=== PATIENT | female | born 1990 | race Caucasian/White ===

== ENCOUNTER 2017-04-24 10:13 | Inpatient (IN) | payer OTHER ==
[~2017-04-24] VITALS: Ht 154.9 cm; Wt 63.7 kg
[~2017-04-24 10:13] MED LIST: PREN1TAB74 PO
[2017-04-24 10:26] VITALS: Ht 154.9 cm; Wt 63.7 kg
[2017-04-24 10:27] VITALS: BP 96/52; PULSE 93; RESP 20
[2017-04-24] MEDS: LACTATED RINGER'S 1,000 ML IV SCH ×3 (11:08→23:36)
[2017-04-24] MEDS ORDERED: LACTATED RINGER'S 1,000 ML IV SCH (11:12)
--- NOTE | 2017-04-24 11:20 | TRIAGE ---
OB Triage Datetime Report Generated by CPN: 04/24/2017 11:20 Datetime: 04/24/2017 10:30 Assessment Type: Triage Maternal Assessment Level of Consciousness: Fully Conscious DTR's/Clonus: DTRs 2+; No Clonus Headache: Denies Blurred Vision: No Respiratory Effort: Unlabored; Regular Rhythm; Equal Expansion Breath Sounds, Left: Clear and Equal Breath Sounds, Right: Clear and Equal Nausea/Vomiting: Denies RUQ Epigastric Pain: Denies Facial Edema: None Fall Risk Assessment History of Falling: (0) No Secondary Diagnosis: (0) No Ambulatory Aid: (0) Bedrest/Nurse Assist IV Therapy: (0) No Gait: (0) Normal/Bedrest/Immobile Mental Status: (0) Oriented to Own Ability Fall Score: 0 Fall Risk Score Definition: No Risk: No action required Datetime: 04/24/2017 10:27 Labor Evaluation Frequency: q6 Monitor Mode: External Duration (sec)2399: 70 Quality: Moderate Resting Tone [place]: Relaxed Heart Rate FHR Baseline Rate: 140 Monitor Mode: External US FHR Baseline Changes: No Baseline Change Variability: Moderate 6-25 bpm Accelerations: 15X15 Decelerations: None Category: Category I Pain Assessment Pain Scale: 10 Pain Type: Contraction Pain Goal: 0 Datetime: 04/24/2017 10:20 Time of Arrival: 04/24/2017 10:20 EGA: 39.4 Arrived By: Ambulatory Chief Complaint: contractions, prev c/s x3 Movement: Present Contractions: Irregular Rupture of Membranes: Denies Vaginal Bleeding: None Vaginal Discharge: Denies Recent Sexual Intercouse: Denies Abdominal Trauma: Not Applicable Patient Complaints: Contractions Time Provider Notified: 04/24/2017 10:30
[2017-04-24] MEDS ORDERED: OXYTOCIN 30 UNITS/LR 500 ML IV PRN ×2 (11:30→17:30)
[2017-04-24] MEDS ORDERED: CEFAZOLIN 3 GM in DEXTROSE 5% 100 ML IV SCH (11:30)
[2017-04-24] MEDS ORDERED: METHYLERGONOVINE 0.2 MG INJ IM PRN ×2 (11:30→17:30)
[2017-04-24] MEDS ORDERED: CARBOPROST 250 MCG INJ IM PRN ×2 (11:30→17:30)
[2017-04-24] MEDS ORDERED: OXYTOCIN 30 UNITS/LR 500 ML IV SCH (11:30)
[2017-04-24] MEDS ORDERED: MISOPROSTOL 200 MCG TAB PR PRN ×2 (11:30→17:30)
[2017-04-24 11:39] LABS: BASOPHILS % 0.6 % (0.0-2.0); EOSINOPHILS # 0.1 10^3/ul (0.0-0.5); EOSINOPHILS % 1.3 % (0.0-7.0); HEMATOCRIT 32.5 % (37.0-47.0); HEMOGLOBIN 10.3 g/dl (12.0-16.0); LYMPHOCYTES # 1.5 10^3/ul (0.8-2.9); LYMPHOCYTES % 20.5 % (15.0-51.0); MEAN CORPUSCULAR HEMOGLOBIN 25.1 pg (29.0-33.0); MEAN CORPUSCULAR HGB CONC 31.7 g/dl (32.0-37.0); MEAN CORPUSCULAR VOLUME 79.3 fl (82.0-101.0); MEAN PLATELET VOLUME 10.3 fl (7.4-10.4); MONOCYTE # 0.4 10^3/ul (0.3-0.9); MONOCYTES % 6.1 % (0.0-11.0); NEUTROPHILS % 70.9 % (39.0-77.0); PLATELET COUNT 299 10^3/UL (140-415); RED CELL DISTRIBUTION WIDTH 16.4 % (11.5-14.5); WHITE BLOOD COUNT 7.1 10^3/ul (4.8-10.8)
[2017-04-24] MEDS ORDERED: morphine SULFATE/PF (10 MG/10 ML) INJ ONE (11:46)
[2017-04-24] MEDS ORDERED: KETOROLAC 30 MG INJ ONE (11:46)
[2017-04-24] MEDS ORDERED: METOCLOPRAMIDE 10 MG INJ ONE (11:46)
[2017-04-24] MEDS ORDERED: ONDANSETRON 4 MG INJ ONE (11:46)
[2017-04-24] MEDS ORDERED: OXYTOCIN 30 UNITS/LR 500 ML IV ONE (11:46)
[2017-04-24] MEDS ORDERED: CITRIC ACID/NA CITRATE 30 ML CUP PO ONE (12:00)
[2017-04-24] MEDS ORDERED: CEFAZOLIN 2 GM/50 ML (PMX) 50 ML IVPB SCH (12:00)
[2017-04-24 12:21] LABS: INR 0.94; PROTIME 12.6 Sec (12.2-14.2)
[2017-04-24 12:22] LABS: PARTIAL THROMBOPLASTIN TIME 29.7 Sec (25.0-35.0)
[2017-04-24] MEDS ORDERED: EPHEDrine SULFATE 50 MG/5 ML SYG ONE (12:41)
[2017-04-24] MEDS ORDERED: HYDROmorphONE 1 MG/ML SYG IV PRN ×3 (14:00)
[2017-04-24] MEDS ORDERED: DIPHENHYDRAMINE 50 MG INJ IV PRN ×2 (14:00)
[2017-04-24] MEDS ORDERED: NALOXONE (0.4 MG/ML) INJ IV PRN (14:00)
[2017-04-24] MEDS ORDERED: HYDROmorphONE (0.2 MG/ML) 10ML SYG IV PRN ×3 (14:00)
[2017-04-24] MEDS ORDERED: ONDANSETRON 4 MG INJ IV PRN ×2 (14:00)
[2017-04-24] MEDS ORDERED: METOCLOPRAMIDE 10 MG INJ IV PRN (14:00)
[2017-04-24] MEDS ORDERED: MEPERIDINE 25 MG INJ IV PRN (14:00)
--- NOTE | 2017-04-24 14:01 | OPR ---
Operative Report Planned Procedure Free Text/Dictation 39 weeks 4 days history of 3 previous section, request for bilateral tubal ligation at the time of operation with a EDC of April 27, 2017 admitted in active labor contraction every 2-3 minute heart rate category 1 transferred to the delivery room to be prepared for repeat bilateral tubal ligation Procedure date Apr 24, 2017 Procedure(s) Repeat bilateral tubal ligation Performed by: CATHY STANLEY MD Assisting provider: CARLOS TORREZ MD Anesthesiologist: STACEY VALDEZ MD Pre-procedure diagnosis 39 weeks 4 days history of 3 previous section request for tubal ligation in active labor Anesthesia Type: spinal Procedure Description Under satisfactory [] anesthesia, the patient was prepped and draped and placed in supine position, tilted to the left. Pfannenstiel incision was made, carried through the subcutaneous tissue. Bleeders brought under control with electrocautery. Fascia incised to the length of the incision. Rectus muscles from the fascia, divided midline. Peritoneum exposed, entered through a transverse incision. Exploration of abdomen revealed gravid uterus normal- appearing tubes and ovaries extremely thinned out lower segment of the uterus, bladder flap was developed. Transverse incision was made in the lower segment of the uterus. Amniotic sac ruptured. Clear] amniotic fluid noted. Light baby boy was delivered from occiput posterior face up Nasal oropharyngeal suction was performed. baby handed to the team for immediate attention and received 20 units of Pitocin. placenta was delivered manually intact. Uterine cavity cleaned with wet sponge and drainage established. Uterus closed in 2 layers using [Monocryl #1] in continuous fashion. Lateral tubal ligation performed by identifying the fimbria right fallopian tube grasped by a Darline that segment of the tube was completely resected suture material used #0 plain catgut was reinforced with the same suture material specimen submitted to the pathology same procedure performed for the opposite side, peritoneal cavity irrigated with warm saline. Sponge, needle and instrument count reported to be correct. Abdominal peritoneum closed with [0 chromic catgut] continuously. Rectus muscle approximated with [several interrupted 2-0 chromic catgut]. Fascia closed with #1 PDS, cutaneous tissue submitted with several interrupted 2 -0 chromic catgut, skin closed with sore and incision covered with Dermabond. Estimated blood loss 6-700]mL. Urine bag contained 200 mL of clear, urine tolerated procedure well transferred to recovery room in good condition. Post-Procedure Findings: Live Baby boy 9 and 9 Specimen removed: No Complications: None Pt Condition post procedure: stable Physician Certification I, the undersigned physician, hereby certify that I have discussed the procedure described in this consent form with this patient (or the patient's legal ambulatory service representative), including: * The risk and benefits of the procedure; * Any adverse reactions that may reasonably be expected to occur; * Any alternative efficacious methods of treatment which may be medically viable ; * The potential problems that may occur during recuperation; * Potential for blood transfusion and associated risks/benefits; and * Any research or economic interest I may have regarding this treatment. I further certify that the patient/legally responsible person was encouraged to ask question and that all questions were answered. CATHY STANLEY MD Apr 24, 2017 14:00
[2017-04-24 16:40] VITALS: BP 122/68; PULSE 87; RESP 20
[2017-04-24] MEDS ORDERED: CEFAZOLIN 1 GM/50 ML (PMX) 50 ML IVPB SCH ×2 (17:30→21:00)
[2017-04-24] MEDS ORDERED: OXYCODONE/ACETAMINOPHEN (5/325) TAB PO PRN (17:30)
[2017-04-24] MEDS ORDERED: HYDROCODONE/APAP (5/325) TAB PO PRN ×2 (17:30)
[2017-04-24] MEDS: OXYTOCIN 30 UNITS/LR 500 ML IV SCH ×2 (17:35→21:05)
[2017-04-24] MEDS: LANOLIN 7 GM TUBE TOP PRN (17:38)
[2017-04-24 17:57] VITALS: BP 120/60; PULSE 80; RESP 19
[2017-04-24 19:50] VITALS: BP 98/57; PULSE 77; RESP 18
[2017-04-25] VITALS: BP 105/59; PULSE 59; RESP 18
[2017-04-25] MEDS: KETOROLAC 30 MG INJ IV PRN ×2 (00:07→11:37)
[2017-04-25] MEDS: OXYTOCIN 30 UNITS/LR 500 ML IV SCH ×5 (01:05→17:05)
--- NOTE | 2017-04-25 01:23 | PN ---
Date/Time of Note Date/Time of Note DATE: 04/25/17 TIME: 01:22 Assessment/Plan VTE Prophylaxis VTE Prophylaxis Intervention: ambulation, anti-embolic stocking Lines/Catheters IV Catheter Type (from Nrsg): Peripheral IV Subjective 24 Hr Interval Summary Free Text/Dictation Anesthesia notw: A 26 year female s/pduramorph spinal is doing ok. no pain, headache N/V, itching , back psin. no irritation at back. care per surgery Exam/Review of Systems Vital Signs Vitals Vital Signs Date Time Temp Pulse Resp B/P Pulse Ox O2 Delivery O2 Flow Rate FiO2 04/24/17 17:57 98.4 80 19 120/60 Room Air 04/24/17 16:40 99 Intake and Output 04/24/17 04/24/17 04/25/17 15:00 23:00 07:00 Intake Total 3200 ml 475 ml Output Total 600 ml 750 ml Balance 2600 ml -275 ml Results Result Diagram: 04/24/17 1010 Results 24 hrs Laboratory Tests Test 04/24/17 10:10 White Blood Count 7.1 Red Blood Count 4.10 L Hemoglobin 10.3 L Hematocrit 32.5 L Mean Corpuscular Volume 79.3 L Mean Corpuscular Hemoglobin 25.1 L Mean Corpuscular Hemoglobin Concent 31.7 L Red Cell Distribution Width 16.4 #H Platelet Count 299 Mean Platelet Volume 10.3 # Neutrophils % 70.9 Lymphocytes % 20.5 Monocytes % 6.1 Eosinophils % 1.3 Basophils % 0.6 Nucleated Red Blood Cells % 0.0 Neutrophils # (Manual) 5.0 Lymphocytes # 1.5 Monocytes # 0.4 Eosinophils # 0.1 Basophils # 0.0 Nucleated Red Blood Cells # 0.0 Prothrombin Time 12.6 Prothrombin Time Ratio 1.0 INR International Normalized Ratio 0.94 Activated Partial Thromboplast Time 29.7 Rapid Plasma Reagin NONREACTIVE Hepatitis B Surface Antigen NEGATIVE Medications Medications Current Medications Lactated Ringer's 1,000 ml @ 125 mls/hr Q8H IV Last administered on 04/24/17 23:36; Admin Dose 125 MLS/HR; Start 04/24/17 at 11:00 Oxytocin/Lactated Ringer's 500 ml @ 125 mls/hr ONCE IV Last administered on 15:03; Admin Dose 125 MLS/HR; Start 04/24/17 at 11:30 Naloxone HCl (Narcan) 0.1 mg Q2M PRN IV FOR RESP RATE 8 OR LESS; Start 04/24/17 at 14:00; Stop 04/25/17 at 13:59 Ketorolac Tromethamine (Toradol) 30 mg Q6H PRN IV PAIN Last administered on 04/25t 00:07; Admin Dose 30 MG; Start 04/24/17 at 14:00; Stop 04/25/17 at 13:59 Hydromorphone HCl (Dilaudid) 1 mg Q3H PRN IV BREAKTHROUGH PAIN; Start 04/24/17 at 14:00; Stop 04/25/17 at 13:59 Hydromorphone HCl (Dilaudid) 0.2 mg Q3H PRN IV PAIN LEVEL 1-5; Start 04/24/17 at 14:00; Stop 04/25/17 at 13:59 Hydromorphone HCl (Dilaudid) 0.4 mg Q3H PRN IV PAIN LEVEL 6-10; Start 04/24/17 at 14:00; Stop 04/25/17 at 13:59 Diphenhydramine HCl (Benadryl) 25 mg Q6H PRN IV ITCHING; Start 04/24/17 at 14:00 ; Stop 04/25/17 at 13:59 Ondansetron HCl (Zofran Inj) 4 mg Q6H PRN IV NAUSEA AND/OR VOMITING; Start 04/24 at 14:00; Stop 04/25/17 at 13:59 Acetaminophen/ Hydrocodone Bitart ([place] (5/325)) 1 tab Q4H PRN PO PAIN LEVEL 4 -6; Start 04/24/17 at 17:30 Acetaminophen/ Hydrocodone Bitart ([place] (5/325)) 2 tab Q4H PRN PO PAIN LEVEL 7 -10; Start 04/24/17 at 17:30 Oxycodone/ Acetaminophen (Percocet (5/ 325)) 1 tab Q4H PRN PO PAIN LEVEL 4-6; Start 04/24/17 at 17:30 Oxycodone/ Acetaminophen (Percocet (5/ 325)) 2 tab Q4H PRN PO PAIN LEVEL 7-10; Start 04/24/17 at 17:30 Ibuprofen (Motrin) 600 mg Q6 PO ; Start 04/25/17 at 18:00 Simethicone (Mylicon) 160 mg Q8H PRN PO DISTENSION/GAS/BLOATING; Start 04/24/17 at 17:30 Senna/Docusate Sodium (Senokot-S) 1 tab BID PO ; Start 04/25/17 at 09:00 Diphtheria/ Tetanus/Acell Pertussis 0.5 ml 0.5 ml ONCE ONCE IM* ; Start 04/27/17 at 09:00; Stop 04/27/17 at 09:01 Oxytocin/Lactated Ringer's 500 ml @ 0 mls/hr ONCE PRN IV For Hemorrhage Management; Start 04/24/17 at 17:30 Methylergonovine Maleate (Methergine) 0.2 mg ONCE PRN IM VAGINAL BLEEDING; Start 04/24/17 at 17:30 Carboprost Tromethamine (Hemabate) 250 mcg ONCE PRN IM VAGINAL BLEEDING; Start 04/24/17 at 17:30 Misoprostol 1000 mcg 1,000 mcg ONCE PRN [place] VAGINAL BLEEDING; Start 04/24/17 at 17 :30 Oxytocin/Lactated Ringer's 500 ml @ 125 mls/hr Q4H IV Last administered on 04/24t 17:35; Admin Dose 125 MLS/HR; Start 04/24/17 at 17:05 STACEY VALDEZ MD Apr 25, 2017 01:23
[2017-04-25 04:00] VITALS: BP 91/47; PULSE 79; RESP 18
[2017-04-25 07:52] LABS: BASOPHILS % 0.4 % (0.0-2.0); EOSINOPHILS # 0.1 10^3/ul (0.0-0.5); EOSINOPHILS % 0.7 % (0.0-7.0); HEMATOCRIT 29.3 % (37.0-47.0); HEMOGLOBIN 8.8 g/dl (12.0-16.0); LYMPHOCYTES # 1.5 10^3/ul (0.8-2.9); LYMPHOCYTES % 20.2 % (15.0-51.0); MEAN CORPUSCULAR HEMOGLOBIN 24.5 pg (29.0-33.0); MEAN CORPUSCULAR VOLUME 81.6 fl (82.0-101.0); MEAN PLATELET VOLUME 10.3 fl (7.4-10.4); MONOCYTE # 0.5 10^3/ul (0.3-0.9); MONOCYTES % 6.7 % (0.0-11.0); NEUTROPHILS % 71.6 % (39.0-77.0); PLATELET COUNT 251 10^3/UL (140-415); RED BLOOD COUNT 3.59 10^6/ul (4.20-5.40); RED CELL DISTRIBUTION WIDTH 16.5 % (11.5-14.5); WHITE BLOOD COUNT 7.5 10^3/ul (4.8-10.8)
[2017-04-25 08:00] VITALS: BP 100/55; PULSE 84; RESP 18
[2017-04-25] MEDS: SENNA/DOCUSATE NA (8.6MG/50MG) TAB PO SCH ×2 (09:59→21:14)
[2017-04-25] MEDS: LACTATED RINGER'S 1,000 ML IV SCH (11:00)
[2017-04-25 12:30] VITALS: BP 98/52; PULSE 82; RESP 18
--- NOTE | 2017-04-25 12:47 | PN ---
Date/Time of Note Date/Time of Note DATE: 04/25/17 TIME: 12:45 OB Subjective Subjective Subjective Post day but Afebrile Vital signs are stable Abdomen soft Bowel sounds present Lochia moderate Ambulation encouraged Extremities normal Laboratory Tests Test 04/25/17 06:59 White Blood Count 7.510^3/ul Red Blood Count 3.5910^6/ul Hemoglobin 8.8g/dl Hematocrit 29.3% Mean Corpuscular Volume 81.6fl Mean Corpuscular Hemoglobin 24.5pg Mean Corpuscular Hemoglobin Concent 30.0g/dl Red Cell Distribution Width 16.5% Platelet Count 10881^3/UL Mean Platelet Volume 10.3fl Neutrophils % 71.6% Lymphocytes % 20.2% Monocytes % 6.7% Eosinophils % 0.7% Basophils % 0.4% Nucleated Red Blood Cells % 0.0/100WBC Neutrophils # (Manual) 5.410^3/ul Lymphocytes # 1.510^3/ul Monocytes # 0.510^3/ul Eosinophils # 0.110^3/ul Basophils # 0.010^3/ul Nucleated Red Blood Cells # 0.010^3/ul Current Medications Medications (Trade) Dose Ordered Sig/[place] Route PRN Reason Start Time Stop Time Status Last Admin Dose Admin Lactated Ringer's 1,000 ml @ 125 mls/hr Q8H IV 04/24/17 11:00 04/24/17 23:36 Lactated Ringer's 1,000 ml @ 125 mls/hr Q8H IV 04/24/17 11:12 04/24/17 17:09 DC Cefazolin Sodium 3 gm/Dextrose 100 ml @ 100 mls/hr ONCE IV 04/24/17 11:30 04/24/17 11:57 DC Oxytocin/Lactated Ringer's 500 ml @ 125 mls/hr ONCE IV 04/24/17 11:30 04/24/17 15:03 Oxytocin/Lactated Ringer's 500 ml @ 0 mls/hr ONCE PRN IV For Hemorrhage Management 04/24/17 11:30 04/24/17 17:09 DC Methylergonovine Maleate (Methergine) 0.2 mg ONCE PRN IM VAGINAL BLEEDING 04/24/17 11:30 04/24/17 17:09 DC Carboprost Tromethamine (Hemabate) 250 mcg ONCE PRN IM VAGINAL BLEEDING 04/24/17 11:30 04/24/17 17:09 DC Misoprostol 1000 mcg 1,000 mcg ONCE PRN [place] VAGINAL BLEEDING 04/24/17 11:30 04/24/17 17:09 DC Oxytocin/Lactated Ringer's 500 ml @ ud STK-MED ONCE IV 04/24/17 11:46 04/24/17 11:47 DC Morphine Sulfate (Duramorph) 10 mg STK-MED ONCE .ROUTE 04/24/17 11:46 04/24/17 11:47 DC Ondansetron HCl (Zofran Inj) 4 mg STK-MED ONCE .ROUTE 04/24/17 11:46 04/24/17 11:47 DC Metoclopramide HCl (Reglan) 10 mg STK-MED ONCE .ROUTE 04/24/17 11:46 04/24/17 11:47 DC Ketorolac Tromethamine (Toradol) 30 mg STK-MED ONCE .ROUTE 04/24/17 11:46 04/24/17 11:47 DC Citric Acid/ Sodium Citrate 30 ml 30 ml PRE-OP ONCE PO 04/24/17 12:00 04/24/17 12:01 DC 04/24/17 11:59 Cefazolin Sodium/ Dextrose (Ancef 2 Gm/50 ml (Pmx)) 50 ml @ 100 mls/hr ONCE IVPB 04/24/17 12:00 04/24/17 17:09 DC Ephedrine Sulfate 50 mg STK-MED ONCE .ROUTE 04/24/17 12:41 04/24/17 12:42 DC Naloxone HCl (Narcan) 0.1 mg Q2M PRN IV FOR RESP RATE 8 OR LESS 04/24/17 14:00 04/25/17 13:59 Ketorolac Tromethamine (Toradol) 30 mg Q6H PRN IV PAIN 04/24/17 14:00 04/25/17 13:59 04/25/17 11:37 Hydromorphone HCl (Dilaudid) 1 mg Q3H PRN IV BREAKTHROUGH PAIN 04/24/17 14:00 04/25/17 13:59 Hydromorphone HCl (Dilaudid) 0.2 mg Q3H PRN IV PAIN LEVEL 1-5 04/24/17 14:00 04/25/17 13:59 Hydromorphone HCl (Dilaudid) 0.4 mg Q3H PRN IV PAIN LEVEL 6-10 04/24/17 14:00 04/25/17 13:59 Diphenhydramine HCl (Benadryl) 25 mg Q6H PRN IV ITCHING 04/24/17 14:00 04/25/17 13:59 Ondansetron HCl (Zofran Inj) 4 mg Q6H PRN IV NAUSEA AND/OR VOMITING 04/24/17 14:00 04/25/17 13:59 Hydromorphone HCl (Dilaudid (Rec)) 0.2 mg PACU ORDER PRN IV MILD PAIN LEVEL 1-3 04/24/17 14:00 04/24/17 17:09 DC Hydromorphone HCl (Dilaudid (Rec)) 0.4 mg PACU ORDER PRN IV MODERATE PAIN LEVEL 4-6 04/24/17 14:00 04/24/17 17:09 DC Hydromorphone HCl (Dilaudid (Rec)) 0.6 mg PACU ORDER PRN IV SEVERE PAIN LEVEL 7-10 04/24/17 14:00 04/24/17 17:09 DC Ondansetron HCl (Zofran Inj) 4 mg PACU ORDER PRN IV NAUSEA AND/OR VOMITING 04/24/17 14:00 04/24/17 17:09 DC Metoclopramide HCl (Reglan) 10 mg PACU ORDER PRN IV NAUSEA AND/OR VOMITING 04/24/17 14:00 04/24/17 17:09 DC Meperidine HCl (Demerol) 25 mg PACU ORDER PRN IV POST-OP RIGORS 04/24/17 14:00 04/24/17 17:09 DC Diphenhydramine HCl (Benadryl) 25 mg PACU ORDER PRN IV PRURITUS 04/24/17 14:00 04/24/17 17:09 DC Acetaminophen/ Hydrocodone Bitart ([place] (5/325)) 1 tab Q4H PRN PO PAIN LEVEL 4-6 04/24/17 17:30 Acetaminophen/ Hydrocodone Bitart ([place] (5/325)) 2 tab Q4H PRN PO PAIN LEVEL 7-10 04/24/17 17:30 Oxycodone/ Acetaminophen (Percocet (5/ 325)) 1 tab Q4H PRN PO PAIN LEVEL 4-6 04/24/17 17:30 Oxycodone/ Acetaminophen (Percocet (5/ 325)) 2 tab Q4H PRN PO PAIN LEVEL 7-10 04/24/17 17:30 Ibuprofen (Motrin) 600 mg Q6 PO 04/25/17 18:00 Simethicone (Mylicon) 160 mg Q8H PRN PO DISTENSION/GAS/BLOATING 04/24/17 17:30 04/25/17 11:38 Senna/Docusate Sodium (Senokot-S) 1 tab BID PO 04/25/17 09:00 04/25/17 09:59 Lanolin ([id number]) 1 applic BEDSIDE MEDICATION PRN TOP BEDSIDE FOR JOHNNIE TO NIPPLES 04/24/17 17:30 04/24/17 17:38 Diphtheria/ Tetanus/Acell Pertussis 0.5 ml 0.5 ml ONCE ONCE IM* 04/27/17 09:00 04/27/17 09:01 Oxytocin/Lactated Ringer's 500 ml @ 0 mls/hr ONCE PRN IV For Hemorrhage Management 04/24/17 17:30 Methylergonovine Maleate (Methergine) 0.2 mg ONCE PRN IM VAGINAL BLEEDING 04/24/17 17:30 Carboprost Tromethamine (Hemabate) 250 mcg ONCE PRN IM VAGINAL BLEEDING 04/24/17 17:30 Misoprostol 1000 mcg 1,000 mcg ONCE PRN [place] VAGINAL BLEEDING 04/24/17 17:30 Cefazolin Sodium 50 ml @ 100 mls/hr ONCE IVPB 04/24/17 17:30 04/24/17 17:30 DC Oxytocin/Lactated Ringer's 500 ml @ 125 mls/hr Q4H IV 04/24/17 17:05 04/24/17 17:35 Cefazolin Sodium (Ancef 1 Gm/50 ml (Pmx)) 50 ml @ 100 mls/hr ONCE IVPB 04/24/17 21:00 04/24/17 21:29 DC 04/24/17 21:42 CATHY STANLEY MD Apr 25, 2017 12:47
[2017-04-25 16:30] VITALS: BP_SYST 53; PULSE 94; RESP 18
[2017-04-25] MEDS: OXYCODONE/ACETAMINOPHEN (5/325) TAB PO PRN (16:54)
[2017-04-25] MEDS: IBUPROFEN 600 MG TAB PO SCH ×2 (18:04→23:33)
[2017-04-25 19:45] VITALS: BP 82/54; PULSE 81; RESP 18
[2017-04-26] MEDS: OXYCODONE/ACETAMINOPHEN (5/325) TAB PO PRN (00:53)
[2017-04-26 04:15] VITALS: BP 88/50; PULSE 73; RESP 18
[2017-04-26] MEDS: IBUPROFEN 600 MG TAB PO SCH ×4 (05:31→23:18)
[2017-04-26 08:30] VITALS: BP 85/65; PULSE 76; RESP 16
[2017-04-26] MEDS: SENNA/DOCUSATE NA (8.6MG/50MG) TAB PO SCH ×2 (09:00→21:13)
--- NOTE | 2017-04-26 09:31 | PN ---
Date/Time of Note Date/Time of Note DATE: 04/26/17 TIME: 09:30 OB Subjective Subjective Subjective Post day 2 Afebrile Vital signs are stable Abdomen soft Incision healing well Bowel sounds present Had bowel movement Extremities normal Plan of a.m. discharge discussed CATHY STANLEY MD Apr 26, 2017 09:31
[2017-04-26] MEDS ORDERED: DIPHTH/TET/ACEL PERTUSS (ADULT) 0.5 ML VIAL IM* ONE (13:00)
[2017-04-26 16:15] VITALS: BP 96/50; PULSE 80; RESP 17
[2017-04-26 20:00] VITALS: BP 86/58; PULSE 76; RESP 18
[2017-04-27 04:00] VITALS: BP 83/54; PULSE 69; RESP 17
[2017-04-27] MEDS: IBUPROFEN 600 MG TAB PO SCH ×2 (05:35→11:37)
[2017-04-27 07:45] VITALS: BP 101/53; PULSE 70; RESP 16
[2017-04-27] MEDS ORDERED: DIPHTH/TET/ACEL PERTUSS (ADULT) 0.5 ML VIAL IM* ONE (09:00)
[2017-04-27] MEDS ORDERED: MEASLES,MUMPS,RUBELLA VACCINE INJ SC* ONE (09:00)
[2017-04-27] MEDS: SENNA/DOCUSATE NA (8.6MG/50MG) TAB PO SCH (09:38)
--- NOTE | 2017-04-27 10:09 | PD.PPDC ---
[employer] Discharge Instruction Condition Patient Condition: Good Diet Diet: Resume Regular Diet Activity/Restrictions Activity: Normal Activity May Shower Restrictions: No Exercising No Lifting No Driving No Sexual Activity Nothing in the Vagina No Hardesty No Tampons, douche Wound/Drain Care Instructions Wound/Drain Care Instructions: Remove Steri Strips in 1 week Follow-up Follow-up with Physician: 1, Week/Weeks Provider Information: Post instructions given recommended to make appointment in 1 week to be seen at the clinic Return to clinic for [facility] Instructions: Fever greater than 101 Chills Worsening abdominal pain Excessive Vaginal Bleeding More than 2 pads per hour Unable to tolerate diet OB Instructions: Breast Tenderness Depression Blurried Vision Headache Surgical Instructions: Incisional Drainage Incisional Redness CATHY STANLEY MD Apr 27, 2017 10:09
--- NOTE | 2017-04-27 10:15 | DS ---
Date/Time of Note Date/Time of Note DATE: 04/27/17 TIME: 10:11 Discharge Summary Admission/Discharge Info Admit Date/Time Apr 24, 2017 at 11:16 Discharge Date/Time April 27, 2017 1010 Discharge Diagnosis Post day3 3 Patient Condition: Good Procedures Repeat bilateral tubal ligation Hx of Present Illness history of previous request for tubal ligation Hospital Course Satisfactory recovery uneventful Home Meds Reported Medications Vit-Iron Fumarate-FA ( Vitamin Formula) 1 Tab Tablet, 1 TAB PO AM, TAB 01/30/15 Follow-up Plan Post instructions given recommended to make appointment to be seen at the clinic in 1 week Primary Care Provider [facility] Time spent on discharge: < 30 minutes CATHY STANLEY MD Apr 27, 2017 10:15
== END 2017-04-27 16:32 | disposition home or self-care (01) | DRG 766 ==
LOC: OBT 10:13 → L-D 10:14 → OBT 11:13 → L-D 11:16 → PP1 16:32
PROVIDERS: ADMIT Obstetrics & Gynecology; ATTEND Obstetrics & Gynecology
PROC: 0UL70ZZ Occlusion of Bilateral Fallopian Tubes, Open Approach (ICD-10-PCS; 2017-04-24)
PROC: 3E033VJ Introduction of Other Hormone into Peripheral Vein, Percutaneous Approach (ICD-10-PCS; 2017-04-24)
PROC: 10D00Z1 Extraction of Products of Conception, Low, Open Approach (ICD-10-PCS; principal; 2017-04-24 12:45)
DX: O34.211 Maternal care for low transverse scar from previous cesarean delivery (principal); Z30.2 Encounter for sterilization; Z37.0 Single live birth; Z3A.39 39 weeks gestation of pregnancy
CPT/HCPCS: 36415; 85025; 85610; 85730; 86592; 86850; 86900; 86901; 87340; 88302; 90715; 96360; 99464; G0463; J0690; J1885; J2274; J2405; J2590; J2765; J7120